=== PATIENT | female | born 1940 | race Caucasian/White ===

== ENCOUNTER 2017-09-23 13:10 | Inpatient (IN) | payer MEDICARE ==
[2017-09-23] VITALS (8 sets, daily range): BP systolic 119–164; BP diastolic 60–72
[~2017-09-23] VITALS: Ht 165.1 cm; Wt 82.0 kg
[~2017-09-23 13:10] MED LIST: ESCI20TA PO; SYN0.1T PO
[2017-09-23 13:49] LABS: BASOPHILS % (AUTO) 0.1 % (0-1); EOSINOPHILS % (AUTO) 0 % (0-6); HEMATOCRIT 38.7 % (35.0-45.0); HEMOGLOBIN 13.4 g/dl (12.0-16.0); LYMPHOCYTES # (AUTO) 0.8 X10'3 (1.1-4.8); LYMPHOCYTES % (AUTO) 7.5 % (21-51); MEAN CORPUSCULAR HEMOGLOBIN 32.3 PG (27.0-31.0); MEAN CORPUSCULAR HGB CONC 34.7 % (33.0-36.5); MONOCYTES # (AUTO) 0.5 X10'3 (0-0.9); MONOCYTES % (AUTO) 5.2 % (2-12); NEUTROPHILS # (AUTO) 9.1 X10'3 (1.8-7.7); NEUTROPHILS % (AUTO) 87.2 % (42-75); PLATELET COUNT 295 X10'3 (140-440); RED BLOOD COUNT 4.16 X10'6 (4.20-5.60); RED CELL DISTRIBUTION WIDTH 13.8 % (11.5-14.5); WHITE BLOOD COUNT 10.4 X10'3 (4.5-11.0)
[2017-09-23] MEDS ORDERED: atropine 0.1mg/ml 10ml syringe ONE (14:00)
[2017-09-23 14:03] LABS: PARTIAL THROMBOPLASTIN TIME 25 SECONDS (22-32)
[2017-09-23 14:04] LABS: ALANINE AMINOTRANSFERASE 27 U/L (12-78); ALBUMIN 3.3 G/DL (3.4-5.0); ALBUMIN/GLOBULIN RATIO 0.9 (1.1-1.5); ALKALINE PHOSPHATASE 94 IU/L (46-116); ANION GAP 10 (8-16); ASPARTATE AMINO TRANSFERASE 34 U/L (10-37); BILIRUBIN,TOTAL 0.4 MG/DL (0.1-1.0); BLOOD UREA NITROGEN 15 MG/DL (7-18); CALCIUM 9.6 MG/DL (8.5-10.1); CHLORIDE 101 MMOL/L (99-107); CREATININE 0.88 MG/DL (0.40-0.90); GLUCOSE 154 MG/DL (70-104); SODIUM 136 MMOL/L (135-145); TOTAL CARBON DIOXIDE 25.3 MMOL/L (24-32); TOTAL PROTEIN 7.1 G/DL (6.4-8.2); eGFR 62 ML/MIN
[2017-09-23 14:06] LABS: POTASSIUM 3.8 MMOL/L (3.5-5.1)
[2017-09-23] MEDS ORDERED: heparin 10,000 units/1 ML INJ IV ONE ×2 (14:25→14:40)
[2017-09-23] MEDS ORDERED: heparin 10,000 units/1 ML INJ IV PRN ×2 (14:25→14:40)
[2017-09-23] MEDS ORDERED: morphine 4 MG/ML inj SYRINge IV PRN (14:40)
[2017-09-23] MEDS ORDERED: magnesium hydroxide 30ml (MOM) UD suspension PO PRN (14:40)
[2017-09-23] MEDS ORDERED: mag hydrox/Alum hydrox/simeth 30ml oral suspension PO PRN (14:40)
[2017-09-23] MEDS ORDERED: nitroGLYCERIN 0.4mg SUBLingual tab SL PRN ×2 (14:40→14:50)
[2017-09-23] MEDS ORDERED: ondansetron/PF 4mg/2ml inj IV PRN (14:40)
[2017-09-23] MEDS ORDERED: acetaminophen 325mg tablet PO PRN (14:40)
[2017-09-23] MEDS ORDERED: ESCI10TA PO (15:00)
[2017-09-23] MEDS ORDERED: nitroGLYCERIN-Tridil 50MG/D5W 250 ML IV SCH (16:15)
[2017-09-23] MEDS: nitroGLYCERIN 0.4mg SUBLingual tab SL PRN ×2 (16:39→16:40)
[2017-09-23 16:41] LABS: MAGNESIUM 2.3 MG/DL (1.5-2.4); PHOSPHORUS 2.7 MG/DL (2.3-4.5)
[2017-09-23] MEDS: tirofiban 5mg in NS 100mL 100 ML IV SCH (17:08)
[2017-09-23] MEDS ORDERED: nitroGLYCERIN-Tridil 50MG/D5W 250 ML IV ONE (17:19)
[2017-09-23] MEDS ORDERED: iohexol 350 MG/ML 50ML vial IV ONE (17:19)
[2017-09-23] MEDS ORDERED: iohexol 350MG/ML 100ml bottle IV ONE (17:19)
[2017-09-23] MEDS ORDERED: heparin 1,000unit/ml 10ml vial 10 ML ONE (17:19)
[2017-09-23] MEDS ORDERED: LIDOcaine 1% 30ml preserv. free vial ONE (17:19)
[2017-09-23] MEDS ORDERED: fentaNYL/PF 50MCG/1 ML 2ML syringe ONE (17:55)
[2017-09-23] MEDS ORDERED: midazolam 2 mg/2 ml injection ONE (17:55)
[2017-09-23] MEDS ORDERED: iohexol 350 MG/1 ML 200ml bottle ONE (18:12)
[2017-09-23] MEDS ORDERED: heparin 1,000 UNITS/NS 500ml 500 ML ONE (18:31)
[2017-09-23] MEDS ORDERED: ticagrelor 90mg tablet ONE (19:12)
[2017-09-23] MEDS ORDERED: tirofiban 5mg in NS 100mL 100 ML IV ONE (19:33)
[2017-09-23] MEDS ORDERED: aspirin 81mg tablet.DR PO ONE (21:30)
[2017-09-23] MEDS: metoprolol tartrate 25mg tablet PO SCH (21:48)
[2017-09-24] VITALS (19 sets, daily range): BP systolic 53–158; BP diastolic 35–73
[2017-09-24] MEDS ORDERED: cyclobenzaprine 10mg tablet PO PRN (00:30)
[2017-09-24] MEDS ORDERED: OXAZEpam 15mg capsule PO PRN (00:30)
[2017-09-24] MEDS ORDERED: HYDROcodone/acetaminophen 10/325mg tab PO PRN ×2 (00:30)
[2017-09-24] MEDS ORDERED: acetaminophen 325mg tablet PO PRN ×2 (00:30)
[2017-09-24] MEDS ORDERED: magnesium hydroxide 30ml (MOM) UD suspension PO PRN (00:30)
[2017-09-24] MEDS ORDERED: normal saline 1000ml 1,000 ML IV ONE (00:40)
[2017-09-24 03:48] LABS: BASOPHILS % (AUTO) 0 % (0-1); EOSINOPHILS % (AUTO) 0 % (0-6); HEMATOCRIT 31.8 % (35.0-45.0); HEMOGLOBIN 10.9 g/dl (12.0-16.0); LYMPHOCYTES # (AUTO) 0.7 X10'3 (1.1-4.8); LYMPHOCYTES % (AUTO) 5.6 % (21-51); MEAN CORPUSCULAR HEMOGLOBIN 32.1 PG (27.0-31.0); MEAN CORPUSCULAR HGB CONC 34.2 % (33.0-36.5); MEAN CORPUSCULAR VOLUME 93.8 FL (78-98); MEAN PLATELET VOLUME 8.1 FL (7.4-10.4); MONOCYTES % (AUTO) 7.8 % (2-12); NEUTROPHILS # (AUTO) 11.1 X10'3 (1.8-7.7); NEUTROPHILS % (AUTO) 86.6 % (42-75); PLATELET COUNT 285 X10'3 (140-440); RED BLOOD COUNT 3.39 X10'6 (4.20-5.60); WHITE BLOOD COUNT 12.8 X10'3 (4.5-11.0)
[2017-09-24 04:19] LABS: ALBUMIN 2.6 G/DL (3.4-5.0); ANION GAP 9 (8-16); BLOOD UREA NITROGEN 17 MG/DL (7-18); BUN/CREATININE RATIO 24.6 (6.6-38.0); CALCIUM 8.8 MG/DL (8.5-10.1); CHLORIDE 108 MMOL/L (99-107); CREATININE 0.69 MG/DL (0.40-0.90); GLUCOSE 156 MG/DL (70-104); POTASSIUM 3.7 MMOL/L (3.5-5.1); SODIUM 140 MMOL/L (135-145); TOTAL CARBON DIOXIDE 22.7 MMOL/L (24-32); eGFR 83 ML/MIN
[2017-09-24] MEDS ORDERED: NORepinephrine 8mg/ 250ml NS 250 ML IV ONE (04:24)
[2017-09-24] MEDS ORDERED: NORepinephrine 8mg/ 250ml NS 250 ML IV SCH (04:50)
[2017-09-24] MEDS ORDERED: atropine 0.1mg/ml 10ml syringe IV ONE (04:50)
[2017-09-24] MEDS: tirofiban 5mg in NS 100mL 100 ML IV SCH (06:45)
[2017-09-24 07:30] LABS: CHOL/HDL RATIO 4.2 (0.00-4.99); CHOLESTEROL 185 MG/DL (0-200); HDL CHOLESTEROL 44 MG/DL (35-60); LDL CHOLESTEROL 134 MG/DL (50-100); TRIGLYCERIDES 80 MG/DL (20-135)
[2017-09-24] MEDS ORDERED: ticagrelor 90mg tablet PO SCH (08:00)
[2017-09-24] MEDS ORDERED: aspirin 81mg tablet.DR PO SCH (08:00)
[2017-09-24] MEDS ORDERED: docusate sod 100mg capsule PO SCH (08:00)
[2017-09-24] MEDS ORDERED: atorvastatin 20mg tablet PO SCH (08:00)
[2017-09-24] MEDS: metoprolol tartrate 25mg tablet PO SCH (08:42)
[2017-09-24] MEDS ORDERED: citalopram 20mg tablet PO STA (09:59)
[2017-09-24] MEDS ORDERED: levoTHYROXINE 100mcg tablet PO STA (09:59)
[2017-09-24] MEDS ORDERED: atorvastatin 10mg tablet PO STA (09:59)
[2017-09-24] MEDS ORDERED: TICA90TA PO (13:38)
[2017-09-24] MEDS ORDERED: ATOR20TA66 PO (13:38)
[2017-09-24] MEDS ORDERED: METO25TA6 PO (13:39)
[2017-09-24] MEDS ORDERED: ASPI-1071 PO (13:39)
[2017-09-25] MEDS ORDERED: levoTHYROXINE 100mcg tablet PO SCH (07:00)
[2017-09-25] MEDS ORDERED: atorvastatin 20mg tablet PO SCH (08:00)
[2017-09-25] MEDS ORDERED: citalopram 20mg tablet PO SCH (08:00)
== END 2017-09-24 17:54 | disposition home or self-care (01) | DRG 247 ==
LOC: ER 13:11 → ED HOLD 14:37 → PCU 3S 15:40 → CICU 2S 18:41
PROVIDERS: ADMIT Internal Medicine; ATTEND Internal Medicine
PROC: 4A023N7 Measurement of Cardiac Sampling and Pressure, Left Heart, Percutaneous Approach (ICD-10-PCS; principal; 2017-09-23)
PROC: 0271346 Dilation of Coronary Artery, Two Arteries, Bifurcation, with Drug-eluting Intraluminal Device, Percutaneous Approach (ICD-10-PCS; 2017-09-23)
PROC: 02703ZZ Dilation of Coronary Artery, One Artery, Percutaneous Approach (ICD-10-PCS; 2017-09-23)
PROC: B2111ZZ Fluoroscopy of Multiple Coronary Arteries using Low Osmolar Contrast (ICD-10-PCS; 2017-09-23)
PROC: B2151ZZ Fluoroscopy of Left Heart using Low Osmolar Contrast (ICD-10-PCS; 2017-09-23)
DX: I21.4 Non-ST elevation (NSTEMI) myocardial infarction (principal); E03.9 Hypothyroidism, unspecified; E78.5 Hyperlipidemia, unspecified; F32.9 Major depressive disorder, single episode, unspecified; I25.10 Atherosclerotic heart disease of native coronary artery without angina pectoris; Z90.710 Acquired absence of both cervix and uterus; Z95.5 Presence of coronary angioplasty implant and graft; Z90.49 Acquired absence of other specified parts of digestive tract; Z79.82 Long term (current) use of aspirin; Z79.899 Other long term (current) drug therapy; Z82.49 Family history of ischemic heart disease and other diseases of the circulatory system
CPT/HCPCS: 92920; 93458; 99285; C9600; 36415; 71045; 80048; 80053; 80061; 83735; 83880; 84100; 84484; 85025; 85347; 85610; 85730; 93005; 99152; 99153; A4315; A4620; A6213; A6257; A6449; C1725; C1769; C1874; J0461; J1644; J2250; J2270; J3010; J3246; J3490; J7030; Q9967

== ENCOUNTER 2017-09-27 15:22 | Observation (INO) | payer MEDICARE ==
[~2017-09-27] VITALS: Ht 165.1 cm; Wt 80.5 kg
[~2017-09-27 15:22] MED LIST changes: +ASPI-1071 PO; +ATOR20TA66 PO; +ESCI10TA PO; -ESCI20TA PO; +METO25TA6 PO; +TICA90TA PO
[2017-09-27 15:47] LABS: BASOPHILS % (AUTO) 0.3 % (0-1); EOSINOPHILS # (AUTO) 0.1 X10'3 (0-0.9); EOSINOPHILS % (AUTO) 1.1 % (0-6); HEMATOCRIT 33.4 % (35.0-45.0); HEMOGLOBIN 11.3 g/dl (12.0-16.0); LYMPHOCYTES # (AUTO) 1.1 X10'3 (1.1-4.8); LYMPHOCYTES % (AUTO) 9.3 % (21-51); MEAN CORPUSCULAR HEMOGLOBIN 32.3 PG (27.0-31.0); MEAN CORPUSCULAR VOLUME 94.9 FL (78-98); MEAN PLATELET VOLUME 7.8 FL (7.4-10.4); MONOCYTES # (AUTO) 0.8 X10'3 (0-0.9); NEUTROPHILS # (AUTO) 9.7 X10'3 (1.8-7.7); NEUTROPHILS % (AUTO) 82.3 % (42-75); PLATELET COUNT 330 X10'3 (140-440); RED BLOOD COUNT 3.51 X10'6 (4.20-5.60); RED CELL DISTRIBUTION WIDTH 13.9 % (11.5-14.5); WHITE BLOOD COUNT 11.8 X10'3 (4.5-11.0)
[2017-09-27 16:00] LABS: PARTIAL THROMBOPLASTIN TIME 23 SECONDS (22-32)
[2017-09-27 16:04] LABS: ALANINE AMINOTRANSFERASE 24 U/L (12-78); ALBUMIN 3.4 G/DL (3.4-5.0); ALBUMIN/GLOBULIN RATIO 0.9 (1.1-1.5); ALKALINE PHOSPHATASE 95 IU/L (46-116); ANION GAP 9 (8-16); ASPARTATE AMINO TRANSFERASE 20 U/L (10-37); BILIRUBIN,TOTAL 1.1 MG/DL (0.1-1.0); BLOOD UREA NITROGEN 18 MG/DL (7-18); BUN/CREATININE RATIO 17.5 (6.6-38.0); CALCIUM 9.8 MG/DL (8.5-10.1); CHLORIDE 100 MMOL/L (99-107); CREATININE 1.03 MG/DL (0.40-0.90); GLUCOSE 144 MG/DL (70-104); POTASSIUM 3.7 MMOL/L (3.5-5.1); SODIUM 136 MMOL/L (135-145); TOTAL CARBON DIOXIDE 27.1 MMOL/L (24-32); TOTAL PROTEIN 7.2 G/DL (6.4-8.2); eGFR 52 ML/MIN
[2017-09-27] MEDS ORDERED: magnesium hydroxide 30ml (MOM) UD suspension PO PRN (17:55)
[2017-09-27] MEDS ORDERED: ondansetron/PF 4mg/2ml inj IV PRN (17:55)
[2017-09-27] MEDS ORDERED: acetaminophen 325mg tablet PO PRN (17:55)
[2017-09-27] MEDS ORDERED: nitroGLYCERIN 0.4mg SUBLingual tab SL PRN (17:55)
[2017-09-27] MEDS ORDERED: mag hydrox/Alum hydrox/simeth 30ml oral suspension PO PRN (17:55)
[2017-09-27] MEDS ORDERED: morphine 4 MG/ML inj SYRINge IV PRN ×2 (17:55)
[2017-09-27] MEDS: ticagrelor 90mg tablet PO SCH (19:01)
[2017-09-27] MEDS: metoprolol tartrate 25mg tablet PO SCH (19:01)
[2017-09-27 22:00] VITALS: BP 120/48
[2017-09-28 02:00] VITALS: BP 104/46
[2017-09-28 06:48] VITALS: BP 115/42
[2017-09-28] MEDS ORDERED: citalopram 20mg tablet PO SCH (08:00)
[2017-09-28] MEDS ORDERED: atorvastatin 20mg tablet PO SCH (08:00)
[2017-09-28] MEDS ORDERED: aspirin 81mg tablet.DR PO SCH (08:00)
[2017-09-28] MEDS ORDERED: levoTHYROXINE 100mcg tablet PO SCH (08:00)
[2017-09-28] MEDS: ticagrelor 90mg tablet PO SCH (08:26)
[2017-09-28] MEDS: metoprolol tartrate 25mg tablet PO SCH (08:26)
[2017-09-28 11:00] VITALS: BP 118/67
[2017-09-28] MEDS ORDERED: NITR0.4T51 SL (12:23)
== END 2017-09-28 15:50 | disposition home or self-care (01) ==
LOC: ER 15:23 → ED HOLD 18:23 → PCU 3S 20:31
PROVIDERS: ADMIT Internal Medicine; ATTEND Internal Medicine
DX: R07.89 Other chest pain (principal); E03.9 Hypothyroidism, unspecified; E78.5 Hyperlipidemia, unspecified; I21.4 Non-ST elevation (NSTEMI) myocardial infarction; I25.10 Atherosclerotic heart disease of native coronary artery without angina pectoris; I25.2 Old myocardial infarction; Z90.710 Acquired absence of both cervix and uterus
CPT/HCPCS: 36415; 71045; 80053; 84484; 85025; 85610; 85730; 87070; 93005; 99285; G0378

== ENCOUNTER 2018-05-01 20:06 | Emergency (ER) | payer MEDICARE ==
[~2018-05-01] VITALS: Ht 165.1 cm; Wt 76.3 kg
[~2018-05-01 20:06] MED LIST changes: +NITR0.4T51 SL
[2018-05-01 20:55] LABS: BASOPHILS % (AUTO) 0.3 % (0-1); EOSINOPHILS # (AUTO) 0.1 X10'3 (0-0.9); EOSINOPHILS % (AUTO) 1.5 % (0-6); HEMATOCRIT 40.6 % (35.0-45.0); HEMOGLOBIN 13.6 g/dl (12.0-16.0); LYMPHOCYTES # (AUTO) 1.8 X10'3 (1.1-4.8); LYMPHOCYTES % (AUTO) 19.1 % (21-51); MEAN CORPUSCULAR HEMOGLOBIN 32.1 PG (27.0-31.0); MEAN CORPUSCULAR HGB CONC 33.6 % (33.0-36.5); MEAN CORPUSCULAR VOLUME 95.5 FL (78-98); MEAN PLATELET VOLUME 7.2 FL (7.4-10.4); MONOCYTES # (AUTO) 0.9 X10'3 (0-0.9); MONOCYTES % (AUTO) 9.2 % (2-12); NEUTROPHILS # (AUTO) 6.7 X10'3 (1.8-7.7); NEUTROPHILS % (AUTO) 69.9 % (42-75); PLATELET COUNT 306 X10'3 (140-440); RED BLOOD COUNT 4.25 X10'6 (4.20-5.60); RED CELL DISTRIBUTION WIDTH 15.8 % (11.5-14.5); WHITE BLOOD COUNT 9.5 X10'3 (4.5-11.0)
[2018-05-01 21:10] LABS: ALANINE AMINOTRANSFERASE 63 U/L (12-78); ALBUMIN/GLOBULIN RATIO 0.8 (1.1-1.5); ALKALINE PHOSPHATASE 91 IU/L (46-116); ANION GAP 8 (8-16); ASPARTATE AMINO TRANSFERASE 37 U/L (10-37); BILIRUBIN,TOTAL 0.3 MG/DL (0.1-1.0); BLOOD UREA NITROGEN 14 MG/DL (7-18); BUN/CREATININE RATIO 15.9 (6.6-38.0); CALCIUM 8.7 MG/DL (8.5-10.1); CHLORIDE 102 MMOL/L (99-107); CREATININE 0.88 MG/DL (0.40-0.90); GLUCOSE 151 MG/DL (70-104); POTASSIUM 3.8 MMOL/L (3.5-5.1); PROTHROMBIN TIME 9.8 SECONDS (9.0-12.0); SODIUM 138 MMOL/L (135-145); TOTAL CARBON DIOXIDE 27.7 MMOL/L (24-32); TOTAL PROTEIN 6.7 G/DL (6.4-8.2); eGFR 62 ML/MIN
[2018-05-01 21:11] LABS: PARTIAL THROMBOPLASTIN TIME 25 SECONDS (22-32)
[2018-05-01] MEDS ORDERED: mag hydrox/Alum hydrox/simeth 30ml oral suspension PO ONE (21:40)
[2018-05-01] MEDS ORDERED: LIDOcaine Viscous 15ml cup PO ONE (21:40)
[2018-05-01 23:52] VITALS: BP 132/47
== END 2018-05-02 00:11 | disposition home or self-care (01) ==
LOC: ER 20:07
DX: R07.89 Other chest pain (principal); I25.10 Atherosclerotic heart disease of native coronary artery without angina pectoris; E78.00 Pure hypercholesterolemia, unspecified; I25.2 Old myocardial infarction; Z86.711 Personal history of pulmonary embolism; Z90.49 Acquired absence of other specified parts of digestive tract; Z79.82 Long term (current) use of aspirin; Z79.899 Other long term (current) drug therapy; Z79.01 Long term (current) use of anticoagulants
CPT/HCPCS: 36415; 71045; 80053; 83880; 84484; 85025; 85610; 85730; 93005; 99284

== ENCOUNTER 2018-06-02 22:55 | Inpatient (IN) | payer MEDICARE | END 2018-06-05 13:10 | disposition home or self-care (01) | LOC: ED HOLD 06-03 00:41 → ER 22:55 → PCU 3S 06-03 07:09 | DX: I25.110 Atherosclerotic heart disease of native coronary artery with unstable angina pectoris (principal); I10 Essential (primary) hypertension ==

== ENCOUNTER 2018-08-06 09:54 | Observation (INO) | payer MEDICARE ==
[~2018-08-06] VITALS: Ht 165.1 cm; Wt 81.0 kg
[2018-08-06] MEDS ORDERED: ondansetron/PF 4mg/2ml inj IV ONE (10:30)
[2018-08-06] MEDS ORDERED: aspirin 81mg tab.chew PO ONE (10:30)
[2018-08-06] MEDS ORDERED: morphine 4 MG/ML inj SYRINge IV ONE (10:30)
[2018-08-06] MEDS ORDERED: morphine 4 MG/ML inj SYRINge ONE (10:51)
[2018-08-06 10:53] LABS: BASOPHILS % (AUTO) 0.4 % (0-1); EOSINOPHILS % (AUTO) 0.5 % (0-6); HEMATOCRIT 41.2 % (35.0-45.0); HEMOGLOBIN 13.9 g/dl (12.0-16.0); LYMPHOCYTES # (AUTO) 1.2 X10'3 (1.1-4.8); LYMPHOCYTES % (AUTO) 14.5 % (21-51); MEAN CORPUSCULAR HEMOGLOBIN 32.5 PG (27.0-31.0); MEAN CORPUSCULAR HGB CONC 33.7 g/dL (33.0-36.5); MEAN CORPUSCULAR VOLUME 96.6 FL (78-98); MEAN PLATELET VOLUME 7.7 FL (7.4-10.4); MONOCYTES % (AUTO) 12.1 % (2-12); NEUTROPHILS # (AUTO) 6.1 X10'3 (1.8-7.7); NEUTROPHILS % (AUTO) 72.5 % (42-75); PLATELET COUNT 265 X10'3 (140-440); RED BLOOD COUNT 4.26 X10'6 (4.20-5.60); RED CELL DISTRIBUTION WIDTH 14.9 % (11.5-14.5); WHITE BLOOD COUNT 8.3 X10'3 (4.5-11.0)
[2018-08-06 11:06] LABS: ALANINE AMINOTRANSFERASE 43 U/L (12-78); ALBUMIN 3.1 G/DL (3.4-5.0); ALBUMIN/GLOBULIN RATIO 0.9 (1.1-1.5); ALKALINE PHOSPHATASE 90 IU/L (46-116); ANION GAP 6 (8-16); ASPARTATE AMINO TRANSFERASE 26 U/L (10-37); BILIRUBIN,TOTAL 0.8 MG/DL (0.1-1.0); BLOOD UREA NITROGEN 13 MG/DL (7-18); BUN/CREATININE RATIO 15.5 (6.6-38.0); CALCIUM 9.2 MG/DL (8.5-10.1); CHLORIDE 101 MMOL/L (99-107); CREATININE 0.84 MG/DL (0.40-0.90); GLUCOSE 96 MG/DL (70-104); POTASSIUM 3.9 MMOL/L (3.5-5.1); SODIUM 137 MMOL/L (135-145); TOTAL CARBON DIOXIDE 29.6 MMOL/L (24-32); TOTAL PROTEIN 6.4 G/DL (6.4-8.2); eGFR 66 ML/MIN
[2018-08-06] MEDS ORDERED: LIDOcaine Viscous 15ml cup PO ONE (11:10)
[2018-08-06] MEDS ORDERED: mag hydrox/Alum hydrox/simeth 30ml oral suspension PO ONE (11:10)
[2018-08-06] MEDS ORDERED: famotidine/PF 10 mg/ml inj IV ONE (11:10)
[2018-08-06] MEDS ORDERED: iohexol 350MG/ML 100ml bottle IV ONE (11:27)
[2018-08-06 11:32] LABS: PARTIAL THROMBOPLASTIN TIME 24 SECONDS (22-32)
[2018-08-06] MEDS ORDERED: magnesium Cl slow-release 64mg tablet PO PRN (12:40)
[2018-08-06] MEDS ORDERED: potassium Cl 20 mEq SR tablet PO PRN ×2 (12:40)
[2018-08-06] MEDS ORDERED: potassium Cl 40MEQ/NS 500ml 500 ML IV PRN ×2 (12:40)
[2018-08-06] MEDS ORDERED: magnesium 2GM in 50ml NS 50 ML IV PRN (12:40)
[2018-08-06] MEDS ORDERED: mag hydrox/Alum hydrox/simeth 30ml oral suspension PO PRN (12:40)
[2018-08-06] MEDS ORDERED: acetaminophen 325mg tablet PO PRN ×2 (12:40)
[2018-08-06] MEDS ORDERED: magnesium hydroxide 30ml (MOM) UD suspension PO PRN (12:40)
[2018-08-06] MEDS ORDERED: ondansetron/PF 4mg/2ml inj IV PRN (12:40)
[2018-08-06] MEDS ORDERED: magnesium 4gm in 100ml NS 100 ML IV PRN (12:40)
[2018-08-06] MEDS ORDERED: HYDR25TA4 PO (13:27)
[2018-08-06] MEDS ORDERED: ESTR42.510 VG (13:27)
[2018-08-06] MEDS ORDERED: ASPI-611 PO (13:28)
[2018-08-06] MEDS ORDERED: ATOR-2 PO (13:28)
[2018-08-06] MEDS ORDERED: TICA90TA2 PO (13:30)
[2018-08-06] MEDS ORDERED: METO25TA6 PO (13:30)
[2018-08-06] MEDS ORDERED: NITR0.4T48 SL (13:32)
[2018-08-06] MEDS ORDERED: CHOL10002 PO (13:38)
[2018-08-06] MEDS ORDERED: UBID1CAP54 PO (13:38)
--- NOTE | 2018-08-06 16:05 | NUR ---
Report attempted, RN currently unable to take report.
[2018-08-06] MEDS ORDERED: HYDROchlorothiazide 25mg tablet PO PRN (17:00)
[2018-08-06] MEDS ORDERED: nitroGLYCERIN 0.4mg/hour patch TD SCH ×2 (17:50→18:00)
[2018-08-06 18:00] VITALS: BP 154/62
--- NOTE | 2018-08-06 18:05 | NUR ---
Received report from Fiordaliza RN. Patient arrived to 3011 via ED gurney. Patient ambulated to bed. Patient oriented to room and to call light. Patient in no acute distress. VS: T: 98.5, HR 58, RR: 20: O2: 98% room air, BP 154/62. Pain 0/10. Will continue to monitor.
--- NOTE | 2018-08-06 18:48 | NUR ---
Unable to perform 2 RN skin check during day shift. Patient arrived to PCU at 1805.
[2018-08-06] MEDS: ticagrelor 90mg tablet PO SCH (19:56)
[2018-08-06] MEDS: metoprolol tartrate 25mg tablet PO SCH (19:57)
[2018-08-06 20:00] VITALS: BP 101/52
[2018-08-07 02:00] VITALS: BP 132/59
[2018-08-07 06:05] LABS: BASOPHILS % (AUTO) 0.4 % (0-1); EOSINOPHILS # (AUTO) 0.1 X10'3 (0-0.9); EOSINOPHILS % (AUTO) 0.9 % (0-6); HEMATOCRIT 41.4 % (35.0-45.0); HEMOGLOBIN 13.8 g/dl (12.0-16.0); LYMPHOCYTES # (AUTO) 1.6 X10'3 (1.1-4.8); LYMPHOCYTES % (AUTO) 20.8 % (21-51); MEAN CORPUSCULAR HEMOGLOBIN 32.8 PG (27.0-31.0); MEAN CORPUSCULAR HGB CONC 33.4 g/dL (33.0-36.5); MEAN CORPUSCULAR VOLUME 98.3 FL (78-98); MEAN PLATELET VOLUME 7.9 FL (7.4-10.4); MONOCYTES # (AUTO) 0.9 X10'3 (0-0.9); MONOCYTES % (AUTO) 11.3 % (2-12); NEUTROPHILS # (AUTO) 5.2 X10'3 (1.8-7.7); NEUTROPHILS % (AUTO) 66.6 % (42-75); PLATELET COUNT 245 X10'3 (140-440); RED BLOOD COUNT 4.21 X10'6 (4.20-5.60); WHITE BLOOD COUNT 7.8 X10'3 (4.5-11.0)
--- NOTE | 2018-08-07 06:10 | NUR ---
Problems reprioritized. Patient report given, questions answered & plan of care reviewed with .
[2018-08-07 06:33] LABS: ALBUMIN 3.1 G/DL (3.4-5.0); ANION GAP 3 (8-16); BLOOD UREA NITROGEN 16 MG/DL (7-18); BUN/CREATININE RATIO 18.8 (6.6-38.0); CHLORIDE 106 MMOL/L (99-107); CREATININE 0.85 MG/DL (0.40-0.90); GLUCOSE 98 MG/DL (70-104); POTASSIUM 4.2 MMOL/L (3.5-5.1); SODIUM 140 MMOL/L (135-145); TOTAL CARBON DIOXIDE 30.7 MMOL/L (24-32); eGFR 65 ML/MIN
--- NOTE | 2018-08-07 06:38 | NUR ---
Patient in room PCU 3011. I have received report from Jessenia ANDREA and had the opportunity to ask questions and assume patient care. Pt resting comfortably at this time, will continue to monitor
[2018-08-07 07:00] VITALS: BP 134/58
[2018-08-07] MEDS ORDERED: pantoprazole 40mg Tablet.DR PO SCH (07:30)
[2018-08-07] MEDS ORDERED: levoTHYROXINE 100mcg tablet PO SCH (08:00)
[2018-08-07] MEDS ORDERED: UBIDECARENONE PO SCH (08:00)
[2018-08-07] MEDS ORDERED: enoxaparin 40mg/0.4ml syringe SQ SCH (08:00)
[2018-08-07] MEDS ORDERED: citalopram 20mg tablet PO SCH (08:00)
[2018-08-07] MEDS ORDERED: vitamin D (cholecalciferol) 1,000 unit tablet PO SCH (08:00)
[2018-08-07] MEDS ORDERED: VIT E ACETATE PO SCH (08:00)
[2018-08-07] MEDS ORDERED: atorvastatin 20mg tablet PO SCH (08:00)
[2018-08-07] MEDS ORDERED: K and/or MAG REPLACEMENT MC SCH (08:00)
[2018-08-07] MEDS ORDERED: aspirin 81mg tab.chew PO SCH (08:30)
--- NOTE | 2018-08-07 08:40 | NUR ---
Ambulated patient 600 ft with no assistive devices. Patient tolerated well and when done stated that she had a slight heaviness on the right side of her chest. O2sat was at 88/89. Patient recovered easily to 98% on room air. Spoke with Dafne Dominguez NP about results of ambulation. Per Dafne Dominguez FITNESS/WELLNESS DIRECTOR can feed patient a light breakfast and okay to give lovenox.
[2018-08-07] MEDS: ticagrelor 90mg tablet PO SCH (08:53)
[2018-08-07] MEDS: metoprolol tartrate 25mg tablet PO SCH (08:54)
[2018-08-07] MEDS ORDERED: ISOS30TA6 PO (10:34)
[2018-08-07] MEDS ORDERED: PANT-47 PO (10:34)
[2018-08-07 11:00] VITALS: BP 149/77
--- NOTE | 2018-08-07 13:16 | NUR ---
Patient was discharged at 1255 home. Discharge instruction and patient education were reviewed before signing and being sent home with patient. PIV was removed with cannula intact and telemetry monitoring was removed. All patient belongings were sent home with patient and Rx's were delivered by [facility]. Patient was wheeled down by staff and left via private vehicle with .
[2018-08-11] MEDS ORDERED: ESTRADIOL VG SCH (17:15)
== END 2018-08-07 11:55 | disposition home or self-care (01) ==
LOC: ER 09:55 → PCU 3S 19:00 → CMPBEDREQ 19:49
PROVIDERS: ADMIT Hospitalist; ATTEND Hospitalist
DX: I25.119 Atherosclerotic heart disease of native coronary artery with unspecified angina pectoris (principal); E78.00 Pure hypercholesterolemia, unspecified; F41.9 Anxiety disorder, unspecified; F32.9 Major depressive disorder, single episode, unspecified; E78.5 Hyperlipidemia, unspecified; I25.2 Old myocardial infarction; E03.9 Hypothyroidism, unspecified; Z86.711 Personal history of pulmonary embolism; Z95.5 Presence of coronary angioplasty implant and graft; Z90.49 Acquired absence of other specified parts of digestive tract; Z79.82 Long term (current) use of aspirin
CPT/HCPCS: 36415; 71045; 80048; 80053; 83735; 84439; 84443; 84484; 85025; 85610; 85730; 87070; 93005; 96372; 96374; 99284; G0378; J2270; J2405; J3490; Q9967; J1650

== ENCOUNTER 2018-08-19 18:49 | Emergency (ER) | payer MEDICARE ==
[~2018-08-19] VITALS: Ht 165.1 cm; Wt 80.9 kg
[~2018-08-19 18:49] MED LIST changes: -ASPI-1071 PO; +ASPI-611 PO; +ATOR-2 PO; -ATOR20TA66 PO; +CHOL10002 PO; +ESTR42.510 VG; +HYDR25TA4 PO; +ISOS30TA6 PO; +NITR0.4T48 SL; -NITR0.4T51 SL; +PANT-47 PO; -TICA90TA PO; +TICA90TA2 PO; +UBID1CAP54 PO
[2018-08-19 19:07] VITALS: BP 133/58
--- NOTE | 2018-08-19 19:40 | NUR ---
PT HAS HX OF DVT, HAD A LUMP DEVELOP SUDDENLY TO HER RIGHT POSTERIOR CALF APPROX 2 HOURS AGO, IS AFRAID SHE HAS ANOTHER DVT. PAIN IS WITH AMBULATION, NEGATIVE DRISS'S. BRUISING TO LEG BELOW AREA OF CONCERN, PT TAKES BLOOD THINNER, [place]. DENIES ANY INJURY TO SITE THAT SHE IS AWARE OF
== END 2018-08-19 21:16 | disposition home or self-care (01) ==
LOC: ER 18:50
DX: S80.12XA Contusion of left lower leg, initial encounter (principal); I25.10 Atherosclerotic heart disease of native coronary artery without angina pectoris; E78.00 Pure hypercholesterolemia, unspecified; I25.2 Old myocardial infarction; Z90.49 Acquired absence of other specified parts of digestive tract; Z95.1 Presence of aortocoronary bypass graft; Z79.82 Long term (current) use of aspirin; X58.XXXA Exposure to other specified factors, initial encounter; Y93.89 Activity, other specified; Y92.89 Other specified places as the place of occurrence of the external cause; Y99.8 Other external cause status
CPT/HCPCS: 99281

== ENCOUNTER 2018-11-01 07:47 | Emergency (ER) | payer MEDICARE ==
[~2018-11-01] VITALS: Ht 165.1 cm; Wt 81.8 kg
[~2018-11-01 07:47] MED LIST changes: -ISOS30TA6 PO
[2018-11-01 08:24] LABS: BASOPHILS % (AUTO) 0.4 % (0-1); EOSINOPHILS % (AUTO) 0.6 % (0-6); HEMATOCRIT 42.5 % (35.0-45.0); HEMOGLOBIN 14.5 g/dl (12.0-16.0); LYMPHOCYTES # (AUTO) 1.1 X10'3 (1.1-4.8); LYMPHOCYTES % (AUTO) 19.4 % (21-51); MEAN CORPUSCULAR HEMOGLOBIN 32.8 PG (27.0-31.0); MEAN CORPUSCULAR HGB CONC 34.1 g/dL (33.0-36.5); MEAN CORPUSCULAR VOLUME 96.2 FL (78-98); MEAN PLATELET VOLUME 7.3 FL (7.4-10.4); MONOCYTES # (AUTO) 0.8 X10'3 (0-0.9); MONOCYTES % (AUTO) 15.2 % (2-12); NEUTROPHILS # (AUTO) 3.6 X10'3 (1.8-7.7); NEUTROPHILS % (AUTO) 64.4 % (42-75); PLATELET COUNT 309 X10'3 (140-440); RED BLOOD COUNT 4.41 X10'6 (4.20-5.60); RED CELL DISTRIBUTION WIDTH 15.2 % (11.5-14.5); WHITE BLOOD COUNT 5.6 X10'3 (4.5-11.0)
[2018-11-01] MEDS ORDERED: nitroGLYCERIN 0.4mg/hour patch TD ONE (08:25)
[2018-11-01] MEDS ORDERED: pantoprazole 40 MG vial IV ONE (08:25)
[2018-11-01] MEDS ORDERED: ondansetron/PF 4mg/2ml inj IV ONE (08:25)
[2018-11-01] MEDS ORDERED: ESOMEPRAZOLE 40 MG VIAL IV ONE (08:35)
[2018-11-01 08:39] LABS: ALANINE AMINOTRANSFERASE 56 U/L (12-78); ALBUMIN 3.2 G/DL (3.4-5.0); ALBUMIN/GLOBULIN RATIO 0.8 (1.1-1.5); ALKALINE PHOSPHATASE 113 IU/L (46-116); ANION GAP 10 (8-16); ASPARTATE AMINO TRANSFERASE 39 U/L (10-37); BILIRUBIN,TOTAL 0.7 MG/DL (0.1-1.0); BLOOD UREA NITROGEN 11 MG/DL (7-18); BUN/CREATININE RATIO 11.8 (6.6-38.0); CALCIUM 9.7 MG/DL (8.5-10.1); CHLORIDE 96 MMOL/L (99-107); CREATININE 0.93 MG/DL (0.40-0.90); GLUCOSE 127 MG/DL (70-104); POTASSIUM 3.5 MMOL/L (3.5-5.1); SODIUM 135 MMOL/L (135-145); TOTAL CARBON DIOXIDE 29.1 MMOL/L (24-32); TOTAL PROTEIN 7.1 G/DL (6.4-8.2); eGFR 58 ML/MIN
[2018-11-01] MEDS: morphine 2 MG/ML inj. syringe IV PRN ×2 (08:39→09:53)
[2018-11-01 08:45] LABS: PARTIAL THROMBOPLASTIN TIME 26 SECONDS (22-32)
[2018-11-01 09:37] LABS: ANISOCYTOSIS 1+; PLATELET ESTIMATE NORMAL; TOTAL CELLS COUNTED 100
--- NOTE | 2018-11-01 09:43 | NUR ---
pt stated heaviness back in chest 10/17 but refuses additional morphine. will continue to monitor.
--- NOTE | 2018-11-01 09:50 | NUR ---
Pt called me back to room stated she wants the morphine now.
[2018-11-01] MEDS ORDERED: PANT-47 PO (12:14)
[2018-11-01] MEDS ORDERED: ISOS30TA6 PO (12:14)
[2018-11-01 12:21] VITALS: BP 121/55
== END 2018-11-01 12:30 | disposition home or self-care (01) ==
LOC: ER 07:47
DX: R07.89 Other chest pain (principal); I25.10 Atherosclerotic heart disease of native coronary artery without angina pectoris; E78.00 Pure hypercholesterolemia, unspecified; I25.2 Old myocardial infarction; Z86.711 Personal history of pulmonary embolism; Z98.61 Coronary angioplasty status; Z90.49 Acquired absence of other specified parts of digestive tract; Z95.9 Presence of cardiac and vascular implant and graft, unspecified; Z79.82 Long term (current) use of aspirin; Z79.899 Other long term (current) drug therapy
CPT/HCPCS: 36415; 71045; 80053; 84484; 85025; 85610; 85730; 93005; 96374; 96375; 96376; 99284; J2270; J2405

== ENCOUNTER 2019-02-01 11:49 | Day surgery (SDC) | payer MEDICARE ==
[2019-01-31 13:12] LABS: BASOPHILS % (AUTO) 0.6 % (0-1); EOSINOPHILS # (AUTO) 0.1 X10'3 (0-0.9); HEMATOCRIT 39.7 % (35.0-45.0); HEMOGLOBIN 13.5 g/dl (12.0-16.0); LYMPHOCYTES # (AUTO) 1.2 X10'3 (1.1-4.8); LYMPHOCYTES % (AUTO) 19.1 % (21-51); MEAN CORPUSCULAR HEMOGLOBIN 32.1 PG (27.0-31.0); MEAN CORPUSCULAR VOLUME 94.3 FL (78-98); MEAN PLATELET VOLUME 7.4 FL (7.4-10.4); MONOCYTES # (AUTO) 0.9 X10'3 (0-0.9); MONOCYTES % (AUTO) 14.5 % (2-12); NEUTROPHILS # (AUTO) 4.2 X10'3 (1.8-7.7); NEUTROPHILS % (AUTO) 64.8 % (42-75); PLATELET COUNT 348 X10'3 (140-440); RED BLOOD COUNT 4.21 X10'6 (4.20-5.60); RED CELL DISTRIBUTION WIDTH 14.6 % (11.5-14.5); WHITE BLOOD COUNT 6.5 X10'3 (4.5-11.0)
[2019-01-31 13:21] LABS: ANION GAP 7 (8-16); BLOOD UREA NITROGEN 11 MG/DL (7-18); BUN/CREATININE RATIO 10.9 (6.6-38.0); CALCIUM 9.4 MG/DL (8.5-10.1); CHLORIDE 98 MMOL/L (99-107); CREATININE 1.01 MG/DL (0.40-0.90); GLUCOSE 122 MG/DL (70-104); POTASSIUM 3.3 MMOL/L (3.5-5.1); SODIUM 136 MMOL/L (135-145); TOTAL CARBON DIOXIDE 30.9 MMOL/L (24-32); eGFR 53 ML/MIN
[2019-01-31 13:25] LABS: PARTIAL THROMBOPLASTIN TIME 25 SECONDS (22-32)
[2019-02-01] VITALS (11 sets, daily range): BP systolic 113–128; BP diastolic 52–77
[~2019-02-01] VITALS: Ht 165.1 cm; Wt 80.7 kg
[2019-02-01] MEDS ORDERED: LORazepam 0.5 MG tablet PO PRN (12:10)
[2019-02-01] MEDS ORDERED: diphenhydrAMINE 25mg capsule PO PRN (12:10)
[2019-02-01] MEDS ORDERED: normal saline 1,000 ML IV SCH (12:10)
[2019-02-01] MEDS ORDERED: ATOR40TA PO (12:55)
[2019-02-01] MEDS ORDERED: ISOS30TA6 PO (12:56)
[2019-02-01] MEDS ORDERED: LIDOcaine/PRILOcaine 5gm cream TP ONE (14:35)
[2019-02-01] MEDS ORDERED: iohexol 350MG/ML 100ml bottle IV ONE (14:51)
[2019-02-01] MEDS ORDERED: midazolam 2 mg/2 ml injection ONE (14:51)
[2019-02-01] MEDS ORDERED: iohexol 350 MG/ML 50ML vial IV ONE (14:51)
[2019-02-01] MEDS ORDERED: nitroGLYCERIN-Tridil 50MG/D5W 250 ML IV ONE (14:51)
[2019-02-01] MEDS ORDERED: LIDOcaine 1% (10mg/ml)w/preservative injection 20ml MDV ONE (14:51)
[2019-02-01] MEDS ORDERED: fentaNYL/PF 50MCG/1 ML 2ML syringe ONE (14:51)
[2019-02-01] MEDS ORDERED: heparin 1,000unit/ml 10ml vial 10 ML ONE (14:51)
[2019-02-01] MEDS ORDERED: verapamil 2.5 mg/ml inj IV ONE (15:04)
[2019-02-01] MEDS ORDERED: FLU VACC QS 2019-20 (6 MOS UP) 60 MCG/0.5 ML VIAL IMVAC ONE (18:30)
== END 2019-02-01 20:00 | disposition home or self-care (01) ==
LOC: SSTAY O 11:49
PROVIDERS: ATTEND Internal Medicine Cardiovascular Disease
DX: R94.39 Abnormal result of other cardiovascular function study (principal); R06.02 Shortness of breath; I25.10 Atherosclerotic heart disease of native coronary artery without angina pectoris; I10 Essential (primary) hypertension; E78.5 Hyperlipidemia, unspecified; Z23 Encounter for immunization; E03.9 Hypothyroidism, unspecified; F32.9 Major depressive disorder, single episode, unspecified; Z95.5 Presence of coronary angioplasty implant and graft; Z79.899 Other long term (current) drug therapy; Z79.82 Long term (current) use of aspirin; Z90.710 Acquired absence of both cervix and uterus; Z90.49 Acquired absence of other specified parts of digestive tract; Z88.5 Allergy status to narcotic agent
CPT/HCPCS: 36415; 80048; 85025; 85610; 85730; 93005; 93458; 99152; 99153; C1769; C1894; G0008; J1644; J2001; J2250; J3010; J7030; Q0163; Q2037; Q9967; A4620; A6258; J3490

== ENCOUNTER 2019-08-23 15:01 | Emergency (ER) | payer MEDICARE ==
[~2019-08-23] VITALS: Ht 165.1 cm; Wt 81.8 kg
[~2019-08-23 15:01] MED LIST changes: -ATOR-2 PO; +ATOR40TA PO; -ESTR42.510 VG; -HYDR25TA4 PO; +ISOS30TA6 PO
[2019-08-23 15:29] LABS: BASOPHILS % (AUTO) 0.5 % (0-1); EOSINOPHILS # (AUTO) 0.1 X10'3 (0-0.9); EOSINOPHILS % (AUTO) 0.9 % (0-6); HEMATOCRIT 39.7 % (35.0-45.0); HEMOGLOBIN 13.2 g/dl (12.0-16.0); LYMPHOCYTES # (AUTO) 1.8 X10'3 (1.1-4.8); LYMPHOCYTES % (AUTO) 29.1 % (21-51); MEAN CORPUSCULAR HEMOGLOBIN 32.1 PG (27.0-31.0); MEAN CORPUSCULAR HGB CONC 33.2 g/dL (33.0-36.5); MEAN CORPUSCULAR VOLUME 96.7 FL (78-98); MEAN PLATELET VOLUME 7.4 FL (7.4-10.4); MONOCYTES # (AUTO) 0.9 X10'3 (0-0.9); MONOCYTES % (AUTO) 14.3 % (2-12); NEUTROPHILS # (AUTO) 3.3 X10'3 (1.8-7.7); NEUTROPHILS % (AUTO) 55.2 % (42-75); PLATELET COUNT 289 X10'3 (140-440); RED CELL DISTRIBUTION WIDTH 15.8 % (11.5-14.5); WHITE BLOOD COUNT 6.1 X10'3 (4.5-11.0)
[2019-08-23 15:36] LABS: PARTIAL THROMBOPLASTIN TIME 27 SECONDS (22-32)
[2019-08-23 15:41] LABS: ALANINE AMINOTRANSFERASE 135 U/L (12-78); ALBUMIN 2.8 G/DL (3.4-5.0); ALBUMIN/GLOBULIN RATIO 0.7 (1.1-1.5); ALKALINE PHOSPHATASE 131 IU/L (46-116); ANION GAP 2 (8-16); ASPARTATE AMINO TRANSFERASE 124 U/L (10-37); BILIRUBIN,TOTAL 0.5 MG/DL (0.1-1.0); BLOOD UREA NITROGEN 17 MG/DL (7-18); BUN/CREATININE RATIO 13.6 (6.6-38.0); CALCIUM 9.4 MG/DL (8.5-10.1); CHLORIDE 101 MMOL/L (99-107); CREATININE 1.25 MG/DL (0.40-0.90); GLUCOSE 106 MG/DL (70-104); POTASSIUM 3.9 MMOL/L (3.5-5.1); SODIUM 135 MMOL/L (135-145); TOTAL CARBON DIOXIDE 32.2 MMOL/L (24-32); TOTAL PROTEIN 6.6 G/DL (6.4-8.2); eGFR 41 ML/MIN
[2019-08-23 16:42] VITALS: BP 123/56
== END 2019-08-23 16:44 | disposition home or self-care (01) ==
LOC: ER 15:02
DX: R07.89 Other chest pain (principal); M54.6 Pain in thoracic spine; I25.10 Atherosclerotic heart disease of native coronary artery without angina pectoris; E78.00 Pure hypercholesterolemia, unspecified; I25.2 Old myocardial infarction; Z86.711 Personal history of pulmonary embolism; Z98.61 Coronary angioplasty status; Z90.49 Acquired absence of other specified parts of digestive tract; Z98.890 Other specified postprocedural states; Z79.82 Long term (current) use of aspirin; Z79.899 Other long term (current) drug therapy
CPT/HCPCS: 36415; 71045; 80053; 84484; 85025; 85610; 85730; 93005; 99285

== ENCOUNTER 2020-06-12 08:33 | Observation (INO) | payer MEDICARE ==
[~2020-06-12] VITALS: Ht 165.1 cm; Wt 81.8 kg
[~2020-06-12 08:33] MED LIST changes: -ISOS30TA6 PO; +ISOS30TA84 PO
[2020-06-12] MEDS ORDERED: ondansetron/PF 4mg/2ml inj IV ONE (08:45)
[2020-06-12] MEDS ORDERED: fentaNYL/PF 50MCG/1 ML 2ML syringe IV ONE ×2 (08:45→10:05)
[2020-06-12 09:03] LABS: BASOPHILS % (AUTO) 0.6 % (0-1); EOSINOPHILS # (AUTO) 0.1 X10'3 (0-0.9); EOSINOPHILS % (AUTO) 1.5 % (0-6); HEMATOCRIT 43.6 % (35.0-45.0); HEMOGLOBIN 14.7 g/dl (12.0-16.0); LYMPHOCYTES % (AUTO) 28.8 % (21-51); MEAN CORPUSCULAR HEMOGLOBIN 32.1 PG (27.0-31.0); MEAN CORPUSCULAR HGB CONC 33.7 g/dL (33.0-36.5); MEAN CORPUSCULAR VOLUME 95.3 FL (78-98); MEAN PLATELET VOLUME 7.3 FL (7.4-10.4); MONOCYTES # (AUTO) 0.9 X10'3 (0-0.9); MONOCYTES % (AUTO) 12.2 % (2-12); NEUTROPHILS % (AUTO) 56.9 % (42-75); PLATELET COUNT 362 X10'3 (140-440); RED BLOOD COUNT 4.57 X10'6 (4.20-5.60); RED CELL DISTRIBUTION WIDTH 14.9 % (11.5-14.5); WHITE BLOOD COUNT 7.1 X10'3 (4.5-11.0)
--- NOTE | 2020-06-12 09:15 | NUR ---
to ct w/ rn accompanyment
[2020-06-12 09:25] LABS: PARTIAL THROMBOPLASTIN TIME 25 SECONDS (22-32)
[2020-06-12 09:27] LABS: ALANINE AMINOTRANSFERASE 36 U/L (12-78); ALBUMIN 3.4 G/DL (3.4-5.0); ALBUMIN/GLOBULIN RATIO 0.8 (1.1-1.5); ALKALINE PHOSPHATASE 115 IU/L (46-116); ANION GAP 8 (8-16); ASPARTATE AMINO TRANSFERASE 36 U/L (10-37); BILIRUBIN,TOTAL 0.5 MG/DL (0.1-1.0); BLOOD UREA NITROGEN 12 MG/DL (7-18); BUN/CREATININE RATIO 12.8 (6.6-38.0); CALCIUM 10.3 MG/DL (8.5-10.1); CHLORIDE 100 MMOL/L (99-107); CREATININE 0.94 MG/DL (0.40-0.90); GLUCOSE 114 MG/DL (70-104); SODIUM 138 MMOL/L (135-145); TOTAL CARBON DIOXIDE 30.2 MMOL/L (24-32); TOTAL PROTEIN 7.7 G/DL (6.4-8.2); eGFR 57 ML/MIN
[2020-06-12 09:29] LABS: POTASSIUM 4.5 MMOL/L (3.5-5.1)
[2020-06-12] MEDS ORDERED: ketorolac tromethamine 15mg/ml inj. IV ONE (09:35)
--- NOTE | 2020-06-12 09:45 | NUR ---
Per edmd nina, verbal received to administered balance of fentanyl 25mcg from initial vial.
[2020-06-12] MEDS ORDERED: diphenhydrAMINE 50 mg/ml inj IV ONE (10:25)
[2020-06-12] MEDS ORDERED: metoclopramide 5 mg/ml inj IV ONE (10:25)
--- NOTE | 2020-06-12 10:55 | NUR ---
Stroke called off by perry wood.
[2020-06-12] MEDS ORDERED: mag hydrox/Alum hydrox/simeth 30ml oral suspension PO PRN (11:05)
[2020-06-12] MEDS ORDERED: acetaminophen 325mg tablet PO PRN (11:05)
[2020-06-12] MEDS ORDERED: magnesium hydroxide 30ml (MOM) UD suspension PO PRN (11:05)
[2020-06-12] MEDS ORDERED: ondansetron/PF 4mg/2ml inj IV PRN (11:05)
[2020-06-12] MEDS: normal saline 1000ml 1,000 ML IV SCH ×2 (11:36→21:05)
[2020-06-12 12:13] LABS: CHOL/HDL RATIO 4.3 (0.00-4.99); CHOLESTEROL 254 MG/DL (0-200); HDL CHOLESTEROL 59 MG/DL (35-60); LDL CHOLESTEROL 181 MG/DL (50-100); TRIGLYCERIDES 97 MG/DL (20-135)
--- NOTE | 2020-06-12 13:20 | NUR ---
Report received from ED RNFiona
[2020-06-12] MEDS ORDERED: DULO60CA65 PO (13:42)
[2020-06-12 13:55] VITALS: BP 156/72
[2020-06-12] MEDS ORDERED: nitroGLYCERIN 0.4mg SUBLingual tab SL PRN (14:00)
[2020-06-12] MEDS ORDERED: ketorolac tromethamine 15mg/ml inj. IV PRN (14:35)
[2020-06-12 18:00] VITALS: BP 149/68
--- NOTE | 2020-06-12 18:00 | NUR ---
Patient in room ORTHO 4020. I have received report from ZULLY Muhammad and had the opportunity to ask questions and assume patient care.
--- NOTE | 2020-06-12 18:20 | NUR ---
Problems reprioritized. Patient report given, questions answered & plan of care reviewed with ZULLY Mayberry.
[2020-06-12] MEDS: heparin, porcine 5000 units/ml vial SQ SCH (20:15)
[2020-06-12 20:52] LABS: CLARITY,URINE SLIGHTLY CLOUDY (Clear); COLOR,URINE YELLOW (Yellow); GLUCOSE, URINE NEGATIVE (Neg); KETONES,URINE NEGATIVE (Neg); LEUKOCYTE ESTERASE ,URINE SMALL (Neg); NITRITES, URINE NEGATIVE (Neg); OCCULT BLOOD,URINE NEGATIVE (Neg); PH,URINE 5.5 (4.8-8.0); PROTEIN,URINE NEGATIVE (Neg); UROBILINOGEN,URINE 0.2 E.U/dL (0.2-1.0)
[2020-06-12 21:28] LABS: UA COLLECTION TYPE CLN CATCH MIDSTREAM
[2020-06-12 21:47] LABS: MUCUS STRANDS NONE SEEN /LPF (Neg); SQUAMOUS EPITHELIAL CELL,UR MODERATE /LPF (FEW)
[2020-06-12 21:49] LABS: BACTERIA,URINE FEW /HPF (Neg); HYALINE CASTS 0-3 /LPF (NEGATIVE); RBC,URINE 0-2 /HPF (0-2)
[2020-06-12 22:00] VITALS: BP 129/63
[2020-06-13] MEDS: normal saline 1000ml 1,000 ML IV SCH (01:37)
[2020-06-13 02:00] VITALS: BP 142/64
[2020-06-13 06:00] VITALS: BP 149/62
--- NOTE | 2020-06-13 06:18 | NUR ---
Patient in room ORTHO 4020. I have received report from Shawanda ANDREA and had the opportunity to ask questions and assume patient care.
--- NOTE | 2020-06-13 06:34 | NUR ---
Problems reprioritized. Patient report given, questions answered & plan of care reviewed with ZULLY Mcgregor.
--- NOTE | 2020-06-13 06:42 | NUR ---
Patient in room ORTHO 4020. I have received report from Brett Mayberry and had the opportunity to ask questions and assume patient care.
[2020-06-13] MEDS ORDERED: aspirin 81mg tablet.DR PO SCH (08:00)
[2020-06-13] MEDS ORDERED: atorvastatin 10mg tablet PO SCH (08:00)
[2020-06-13] MEDS ORDERED: levoTHYROXINE 100mcg tablet PO SCH (08:00)
[2020-06-13] MEDS ORDERED: duloxetine 30mg CAPSULE.DR PO SCH (08:00)
[2020-06-13] MEDS ORDERED: non-formulary drug (Aspirin (Aspir 81) 1 TAB) PO SCH (08:00)
[2020-06-13] MEDS: heparin, porcine 5000 units/ml vial SQ SCH (08:02)
[2020-06-13 10:00] VITALS: BP 164/75
--- NOTE | 2020-06-13 13:15 | NUR ---
Patient discharged to home, alert and oriented x4 and in no apparent distress. Patient verbalized understanding of all discharge instructions. Discharge instructions given to patient and her . Pt packed all belongings and helped. Her hearing aids were in her ears. Patient understood discharge instructions and was given the opportunity to ask questions. She has a follow-up appt on Monday with Dr. Zimmerman and will make a 1 wk. appt with her PCP. IV catheter removed and intact. Patient sent home with hyperlipidemia medications, called into [facility] in [place]. Patient loaded into wheelchair and taken downstairs to leave with .
[2020-06-13] MEDS ORDERED: ATOR20TA66 PO (13:57)
[2020-06-13 14:00] VITALS: BP 132/63
[2020-06-13 15:00] VITALS: BP 132/63
--- NOTE | 2020-06-15 15:43 | NUR ---
CASE MANAGEMENT DISCHARGE FOLLOW UP: Spoke with pt via telephone. Reports that she is still having headaches, currently 2-3/10, states feels like constant pressure and her "head is full". She also admits to having a headache last night on the right posterior aspect that she rated a 10/10 that resolved on its own, however it made it very difficult for her to sleep. Pt denies visual/speech changes, dizziness, weakness, nausea. Upon inquiry pt states that she does not check her BP, states that her has a cuff but she is worried he'll "squeeze her arm to ." Verbalizes understanding of s/sx requiring further evaluation/emergent assistance. Verbalizes understanding of medications, states that she was not sure if she had any new Rx to brain picker, educated pt that MD ordered Lipitor for cholesterol to prevent CVA/[place]/worsening CAD. Verbalizes compliance with MD discharge instructions. Verbalizes understanding of the importance in making/keeping follow-up appointments, states sees PCP on 06/25. Pt wants to ask her PCP for toradol for pain, states that so far it has been the only thing that alleviated her headache other than time, states that morphine did not work at all. Advised that pt should try to get an earlier appt with PCP if able to do so for adequate pain control of headaches, pt states that she will do so. States no further questions/concerns at this time.
== END 2020-06-13 15:15 | disposition home or self-care (01) ==
LOC: ER 08:34 → ED HOLD 11:04 → EDBEDREQ 12:35 → ORTHO 4S 13:50
PROVIDERS: ADMIT Family Medicine; ATTEND Family Medicine
DX: G45.9 Transient cerebral ischemic attack, unspecified (principal); I25.10 Atherosclerotic heart disease of native coronary artery without angina pectoris; I10 Essential (primary) hypertension; E78.5 Hyperlipidemia, unspecified; E78.00 Pure hypercholesterolemia, unspecified; E03.9 Hypothyroidism, unspecified; I25.2 Old myocardial infarction; Z86.711 Personal history of pulmonary embolism; Z90.49 Acquired absence of other specified parts of digestive tract; Z95.5 Presence of coronary angioplasty implant and graft; Z79.899 Other long term (current) drug therapy
CPT/HCPCS: 36415; 70450; 70544; 70551; 71045; 80053; 80061; 81001; 85025; 85610; 85730; 87081; 87088; 92508; 92616; 93005; 93306; 93880; 96361; 96372; 96374; 96375; 96376; 97116; 97161; 97530; 99285; G0378; J1200; J1644; J1885; J2405; J2765; J3010; J7030

== ENCOUNTER 2020-12-29 06:12 | Day surgery (SDC) | payer MEDICARE ==
[2020-12-28 13:33] LABS: BASOPHILS % (AUTO) 0.4 % (0-1); EOSINOPHILS # (AUTO) 0.1 X10'3 (0-0.9); HEMATOCRIT 40.2 % (35.0-45.0); HEMOGLOBIN 13.5 g/dl (12.0-16.0); LYMPHOCYTES # (AUTO) 1.4 X10'3 (1.1-4.8); LYMPHOCYTES % (AUTO) 24.3 % (21-51); MEAN CORPUSCULAR HEMOGLOBIN 31.8 PG (27.0-31.0); MEAN CORPUSCULAR HGB CONC 33.6 g/dL (33.0-36.5); MEAN CORPUSCULAR VOLUME 94.8 FL (78-98); MEAN PLATELET VOLUME 7.1 FL (7.4-10.4); MONOCYTES # (AUTO) 0.7 X10'3 (0-0.9); MONOCYTES % (AUTO) 11.4 % (2-12); NEUTROPHILS # (AUTO) 3.7 X10'3 (1.8-7.7); NEUTROPHILS % (AUTO) 62.9 % (42-75); PLATELET COUNT 309 X10'3 (140-440); RED BLOOD COUNT 4.24 X10'6 (4.20-5.60); RED CELL DISTRIBUTION WIDTH 15.1 % (11.5-14.5); WHITE BLOOD COUNT 5.9 X10'3 (4.5-11.0)
[2020-12-28 13:45] LABS: PARTIAL THROMBOPLASTIN TIME 25 SECONDS (22-32)
[2020-12-28 13:46] LABS: ALBUMIN 3.2 G/DL (3.4-5.0); ANION GAP 10 (8-16); BLOOD UREA NITROGEN 16 MG/DL (7-18); BUN/CREATININE RATIO 16.8 (6.6-38.0); CALCIUM 9.3 MG/DL (8.5-10.1); CHLORIDE 100 MMOL/L (99-107); CREATININE 0.95 MG/DL (0.40-0.90); GLUCOSE 138 MG/DL (70-104); POTASSIUM 3.8 MMOL/L (3.5-5.1); SODIUM 137 MMOL/L (135-145); TOTAL CARBON DIOXIDE 26.6 MMOL/L (24-32); eGFR 57 ML/MIN
[2020-12-29] VITALS (14 sets, daily range): BP systolic 140–174; BP diastolic 53–70
[~2020-12-29] VITALS: Ht 165.1 cm; Wt 83.2 kg
[~2020-12-29 06:12] MED LIST changes: +ATOR20TA66 PO; -ATOR40TA PO; +DULO60CA65 PO; -ESCI10TA PO; -ISOS30TA84 PO; -METO25TA6 PO; -PANT-47 PO; -TICA90TA2 PO
[2020-12-29] MEDS ORDERED: diphenhydrAMINE 25mg capsule PO PRN (06:30)
[2020-12-29] MEDS ORDERED: normal saline 1,000 ML IV SCH (06:30)
[2020-12-29] MEDS ORDERED: LORazepam 0.5 MG tablet PO PRN (06:30)
[2020-12-29] MEDS ORDERED: LIDOcaine/PRILOcaine 5gm cream TP ONE (06:30)
[2020-12-29] MEDS ORDERED: METO25TA6 PO (06:39)
[2020-12-29] MEDS ORDERED: CLOP75TA34 PO (06:39)
[2020-12-29] MEDS ORDERED: PENT400T17 PO (06:39)
[2020-12-29] MEDS ORDERED: [UNRECOGNIZED DRUG - CODE] PO (06:45)
[2020-12-29] MEDS ORDERED: ATOR40TA PO (06:45)
[2020-12-29] MEDS ORDERED: microzide (06:45)
[2020-12-29] MEDS ORDERED: NALT50TA PO (06:45)
[2020-12-29] MEDS ORDERED: iohexol 350MG/ML 100ml bottle IV ONE (07:25)
[2020-12-29] MEDS ORDERED: LIDOcaine 1% (10mg/ml)w/preservative injection 20ml MDV ONE (07:25)
[2020-12-29] MEDS ORDERED: midazolam 1 mg/ML 2ml injection ONE (07:25)
[2020-12-29] MEDS ORDERED: nitroGLYCERIN-Tridil 50MG/D5W 250 ML IV ONE (07:25)
[2020-12-29] MEDS ORDERED: verapamil 2.5 mg/ml inj IV ONE (07:25)
[2020-12-29] MEDS ORDERED: heparin 1,000unit/ml 10ml vial 10 ML ONE (07:25)
[2020-12-29] MEDS ORDERED: fentaNYL/PF 50MCG/1 ML 2ML syringe ONE (07:25)
[2020-12-29] MEDS ORDERED: iohexol 350 MG/ML 50ML vial IV ONE (07:25)
== END 2020-12-29 15:00 | disposition home or self-care (01) ==
LOC: SSTAY O 06:12
PROVIDERS: ATTEND Internal Medicine Cardiovascular Disease
DX: R94.39 Abnormal result of other cardiovascular function study (principal); R06.02 Shortness of breath; T82.855A Stenosis of coronary artery stent, initial encounter; I25.10 Atherosclerotic heart disease of native coronary artery without angina pectoris; E78.5 Hyperlipidemia, unspecified; I10 Essential (primary) hypertension; E03.9 Hypothyroidism, unspecified; F32.9 Major depressive disorder, single episode, unspecified; Z79.01 Long term (current) use of anticoagulants; Z88.5 Allergy status to narcotic agent; Z79.899 Other long term (current) drug therapy; Z95.5 Presence of coronary angioplasty implant and graft; Z90.710 Acquired absence of both cervix and uterus; Z82.49 Family history of ischemic heart disease and other diseases of the circulatory system; Y83.8 Other surgical procedures as the cause of abnormal reaction of the patient, or of later complication, without mention of misadventure at the time of the procedure; Y92.89 Other specified places as the place of occurrence of the external cause
CPT/HCPCS: 36415; 76937; 80048; 85025; 85610; 85730; 93005; 93458; 99152; 99153; C1760; C1769; C1894; J1644; J2001; J2250; J3010; J7030; Q0163; Q9967; A4620; A5120; A6258; J3490

== ENCOUNTER 2021-01-07 11:41 | Emergency (ER) | payer MEDICARE ==
[~2021-01-07] VITALS: Ht 165.1 cm; Wt 83.2 kg
[~2021-01-07 11:41] MED LIST changes: -ATOR20TA66 PO; +ATOR40TA PO; +CLOP75TA34 PO; +METO25TA6 PO; +NALT50TA PO; +PENT400T17 PO; +[UNRECOGNIZED DRUG - CODE] PO; +microzide
[2021-01-07 11:50] VITALS: BP 149/61
[2021-01-07] MEDS ORDERED: morphine 4 MG/ML inj SYRINge IM ONE (11:55)
[2021-01-07] MEDS ORDERED: ondansetron 4mg rapidly disintigrating tab PO ONE (12:15)
[2021-01-07] MEDS ORDERED: LIDOcaine Viscous 15ml cup TP ONE ×2 (14:05→16:15)
[2021-01-07] MEDS ORDERED: morphine 4 MG/ML inj SYRINge IV ONE (14:40)
[2021-01-07] MEDS ORDERED: CEPH-585 PO (16:28)
[2021-01-07] MEDS ORDERED: TETanus/Pertussis (Acell)/Diphther VAC/PF (Tdap-Adult) 0.5ml syringe IMVAC ONE (16:30)
== END 2021-01-07 17:41 | disposition home or self-care (01) ==
LOC: ER 11:42
DX: S09.90XA Unspecified injury of head, initial encounter (principal); S01.111A Laceration without foreign body of right eyelid and periocular area, initial encounter; S00.81XA Abrasion of other part of head, initial encounter; S41.111A Laceration without foreign body of right upper arm, initial encounter; S81.011A Laceration without foreign body, right knee, initial encounter; R53.1 Weakness; R53.83 Other fatigue; W01.198A Fall on same level from slipping, tripping and stumbling with subsequent striking against other object, initial encounter; I25.10 Atherosclerotic heart disease of native coronary artery without angina pectoris; E78.00 Pure hypercholesterolemia, unspecified; I25.2 Old myocardial infarction; Z86.711 Personal history of pulmonary embolism; Z90.89 Acquired absence of other organs; Z90.49 Acquired absence of other specified parts of digestive tract; Z98.890 Other specified postprocedural states; Z79.82 Long term (current) use of aspirin; Z79.2 Long term (current) use of antibiotics; Z20.3 Contact with and (suspected) exposure to rabies; Z79.899 Other long term (current) drug therapy; Y93.89 Activity, other specified; Y92.89 Other specified places as the place of occurrence of the external cause; Y99.8 Other external cause status
CPT/HCPCS: 70450; 90715; 96374; 99284; J2270

== ENCOUNTER 2021-09-27 21:55 | Inpatient (IN) | payer MEDICARE ==
[~2021-09-27] VITALS: Ht 165.1 cm; Wt 79.5 kg
[2021-09-27 22:20] LABS: BASOPHILS % (AUTO) 0.6 % (0-1); EOSINOPHILS # (AUTO) 0.1 X10'3 (0-0.9); EOSINOPHILS % (AUTO) 2.2 % (0-6); HEMATOCRIT 39.1 % (35.0-45.0); HEMOGLOBIN 13.1 g/dl (12.0-16.0); LYMPHOCYTES # (AUTO) 2.7 X10'3 (1.1-4.8); LYMPHOCYTES % (AUTO) 42.9 % (21-51); MEAN CORPUSCULAR HEMOGLOBIN 31.2 PG (27.0-31.0); MEAN CORPUSCULAR HGB CONC 33.6 g/dL (33.0-36.5); MEAN CORPUSCULAR VOLUME 92.8 FL (78-98); MEAN PLATELET VOLUME 7.1 FL (7.4-10.4); MONOCYTES # (AUTO) 0.7 X10'3 (0-0.9); MONOCYTES % (AUTO) 11.1 % (2-12); NEUTROPHILS # (AUTO) 2.7 X10'3 (1.8-7.7); NEUTROPHILS % (AUTO) 43.2 % (42-75); PLATELET COUNT 278 X10'3 (140-440); RED BLOOD COUNT 4.21 X10'6 (4.20-5.60); RED CELL DISTRIBUTION WIDTH 13.9 % (11.5-14.5); WHITE BLOOD COUNT 6.3 X10'3 (4.5-11.0)
[2021-09-27 22:35] LABS: ALANINE AMINOTRANSFERASE 26 U/L (12-78); ALBUMIN 3.2 G/DL (3.4-5.0); ALBUMIN/GLOBULIN RATIO 0.9 (1.1-1.5); ALKALINE PHOSPHATASE 100 IU/L (46-116); ANION GAP 8 (8-16); ASPARTATE AMINO TRANSFERASE 26 U/L (10-37); BILIRUBIN,TOTAL 0.3 MG/DL (0.1-1.0); BLOOD UREA NITROGEN 23 MG/DL (7-18); BUN/CREATININE RATIO 20.2 (6.6-38.0); CALCIUM 9.5 MG/DL (8.5-10.1); CHLORIDE 104 MMOL/L (99-107); CREATININE 1.14 MG/DL (0.40-0.90); GLUCOSE 122 MG/DL (70-104); SODIUM 139 MMOL/L (135-145); TOTAL PROTEIN 6.6 G/DL (6.4-8.2); eGFR 46 ML/MIN
[2021-09-28] MEDS ORDERED: nitroGLYCERIN 1gm ointment UD TP ONE (01:25)
[2021-09-28] MEDS ORDERED: heparin 10,000 units/1 ML INJ IV PRN (01:30)
[2021-09-28] MEDS ORDERED: aspirin 81mg tab.chew PO ONE (01:30)
[2021-09-28] MEDS ORDERED: heparin 10,000 units/1 ML INJ IV ONE ×2 (01:30→02:10)
[2021-09-28] MEDS ORDERED: heparin 25,000 UNIT/250ml bag 250 ML IV SCH (01:30)
[2021-09-28 01:46] LABS: APTT 26 SECONDS (22-32)
[2021-09-28 01:52] LABS: BASOPHILS % (AUTO) 0.5 % (0-1); EOSINOPHILS # (AUTO) 0.1 X10'3 (0-0.9); EOSINOPHILS % (AUTO) 1.6 % (0-6); HEMATOCRIT 42.1 % (35.0-45.0); HEMOGLOBIN 14.1 g/dl (12.0-16.0); LYMPHOCYTES # (AUTO) 3.1 X10'3 (1.1-4.8); LYMPHOCYTES % (AUTO) 36.7 % (21-51); MEAN CORPUSCULAR HEMOGLOBIN 31.7 PG (27.0-31.0); MEAN CORPUSCULAR HGB CONC 33.6 g/dL (33.0-36.5); MEAN CORPUSCULAR VOLUME 94.3 FL (78-98); MEAN PLATELET VOLUME 7.1 FL (7.4-10.4); MONOCYTES # (AUTO) 0.9 X10'3 (0-0.9); MONOCYTES % (AUTO) 10.8 % (2-12); NEUTROPHILS # (AUTO) 4.2 X10'3 (1.8-7.7); NEUTROPHILS % (AUTO) 50.4 % (42-75); PLATELET COUNT 282 X10'3 (140-440); RED BLOOD COUNT 4.46 X10'6 (4.20-5.60); RED CELL DISTRIBUTION WIDTH 14.1 % (11.5-14.5); WHITE BLOOD COUNT 8.4 X10'3 (4.5-11.0)
[2021-09-28] MEDS ORDERED: bisacodyl 10mg suppository rectal RC PRN (02:20)
[2021-09-28] MEDS ORDERED: mag hydrox/Alum hydrox/simeth 30ml oral suspension PO PRN (02:20)
[2021-09-28] MEDS ORDERED: morphine 2 MG/ML inj. syringe IV PRN ×2 (02:20)
[2021-09-28] MEDS ORDERED: HYDROcodone/acetaminophen 10/325mg tab PO PRN (02:20)
[2021-09-28] MEDS ORDERED: acetaminophen 325mg tablet PO PRN ×2 (02:20)
[2021-09-28] MEDS ORDERED: magnesium hydroxide 30ml (MOM) UD suspension PO PRN (02:20)
[2021-09-28] MEDS ORDERED: normal saline 1000ml 1,000 ML IV SCH (02:20)
[2021-09-28] MEDS ORDERED: diphenhydrAMINE 25mg capsule PO PRN (02:20)
[2021-09-28] MEDS ORDERED: HYDROmorphone inj. 0.5 MG/0.5 ML DISP.SYRIN IV PRN (02:20)
[2021-09-28] MEDS ORDERED: HYDROcodone/acetaminophen 5mg/325mg tablet PO PRN (02:20)
[2021-09-28] MEDS ORDERED: ondansetron 4mg rapidly disintigrating tab PO PRN (02:20)
[2021-09-28] MEDS ORDERED: diphenhydrAMINE 50 mg/ml inj IV PRN (02:20)
[2021-09-28] MEDS ORDERED: ondansetron/PF 4mg/2ml inj IV PRN (02:20)
[2021-09-28 02:40] LABS: HEMOGLOBIN A1C 5.9 % (4.5-6.2)
[2021-09-28 02:43] LABS: PHOSPHORUS 3.8 MG/DL (2.3-4.5)
[2021-09-28 03:21] LABS: D-DIMER 0.69 MG/L FEU (0-0.50)
[2021-09-28] MEDS ORDERED: hydrALAZINE 20mg/ml inj. IV PRN (05:45)
[2021-09-28 08:00] VITALS: BP 163/64
[2021-09-28] MEDS: pantoprazole 40mg Tablet.DR PO SCH (08:21)
[2021-09-28] MEDS: docusate sod 100mg capsule PO SCH ×2 (08:22→21:31)
[2021-09-28] MEDS: furosemide 10 MG/1 ML 10ml inj IV SCH ×2 (08:22→21:31)
[2021-09-28 11:50] VITALS: BP 157/64
[2021-09-28] MEDS ORDERED: FOLI0.8C PO (14:51)
[2021-09-28] MEDS ORDERED: DULO60CA65 PO (14:51)
[2021-09-28] MEDS ORDERED: METO-467 PO (14:51)
[2021-09-28] MEDS ORDERED: ATOR80TA PO (14:51)
[2021-09-28] MEDS ORDERED: CLOP75TA15 PO (14:51)
[2021-09-28] MEDS ORDERED: LEVO125T8 PO (14:51)
[2021-09-28 15:38] VITALS: BP 138/55
[2021-09-28 18:00] VITALS: BP 152/69
--- NOTE | 2021-09-28 18:19 | NUR ---
Problems reprioritized. Patient report given, questions answered & plan of care reviewed with ZULLY ANDERSON.
[2021-09-28] MEDS ORDERED: temazepam 15mg capsule PO PRN (21:00)
[2021-09-28 22:00] VITALS: BP 121/54
[2021-09-29] VITALS (10 sets, daily range): BP systolic 87–202; BP diastolic 48–85
[2021-09-29 04:48] LABS: BASOPHILS % (AUTO) 0.6 % (0-1); EOSINOPHILS # (AUTO) 0.1 X10'3 (0-0.9); EOSINOPHILS % (AUTO) 1.6 % (0-6); HEMATOCRIT 40.5 % (35.0-45.0); HEMOGLOBIN 13.7 g/dl (12.0-16.0); LYMPHOCYTES # (AUTO) 2.4 X10'3 (1.1-4.8); LYMPHOCYTES % (AUTO) 36.5 % (21-51); MEAN CORPUSCULAR HEMOGLOBIN 31.3 PG (27.0-31.0); MEAN CORPUSCULAR HGB CONC 33.7 g/dL (33.0-36.5); MEAN CORPUSCULAR VOLUME 92.7 FL (78-98); MEAN PLATELET VOLUME 7.7 FL (7.4-10.4); MONOCYTES # (AUTO) 0.9 X10'3 (0-0.9); MONOCYTES % (AUTO) 13.1 % (2-12); NEUTROPHILS # (AUTO) 3.2 X10'3 (1.8-7.7); NEUTROPHILS % (AUTO) 48.2 % (42-75); PLATELET COUNT 280 X10'3 (140-440); RED BLOOD COUNT 4.37 X10'6 (4.20-5.60); RED CELL DISTRIBUTION WIDTH 13.8 % (11.5-14.5); WHITE BLOOD COUNT 6.6 X10'3 (4.5-11.0)
[2021-09-29 05:09] LABS: ALANINE AMINOTRANSFERASE 27 U/L (12-78); ALBUMIN 3.2 G/DL (3.4-5.0); ALBUMIN/GLOBULIN RATIO 0.9 (1.1-1.5); ALKALINE PHOSPHATASE 94 IU/L (46-116); ANION GAP 12 (8-16); ASPARTATE AMINO TRANSFERASE 28 U/L (10-37); BILIRUBIN,TOTAL 0.4 MG/DL (0.1-1.0); BLOOD UREA NITROGEN 19 MG/DL (7-18); BUN/CREATININE RATIO 19.4 (6.6-38.0); CALCIUM 9.5 MG/DL (8.5-10.1); CHLORIDE 103 MMOL/L (99-107); CHOL/HDL RATIO 4.5 (0.00-4.99); CHOLESTEROL 250 MG/DL (0-200); CREATININE 0.98 MG/DL (0.40-0.90); GLUCOSE 122 MG/DL (70-104); HDL CHOLESTEROL 55 MG/DL (35-60); LDL CHOLESTEROL 168 MG/DL (50-100); POTASSIUM 3.9 MMOL/L (3.5-5.1); SODIUM 143 MMOL/L (135-145); TOTAL CARBON DIOXIDE 28.1 MMOL/L (24-32); TOTAL PROTEIN 6.7 G/DL (6.4-8.2); TRIGLYCERIDES 112 MG/DL (20-135); eGFR 55 ML/MIN
[2021-09-29] MEDS: pantoprazole 40mg Tablet.DR PO SCH (07:06)
[2021-09-29] MEDS: docusate sod 100mg capsule PO SCH ×2 (07:06→20:00)
[2021-09-29] MEDS: furosemide 10 MG/1 ML 10ml inj IV SCH ×2 (07:06→20:56)
[2021-09-29] MEDS ORDERED: metoprolol tartrate 50mg tablet PO SCH (08:00)
[2021-09-29] MEDS: clopidogrel 75mg tablet PO SCH (09:34)
[2021-09-29] MEDS: atorvastatin 20mg tablet PO SCH (09:35)
[2021-09-29] MEDS: isosorbide mononitrate 30mg tab.SR.24H PO SCH (10:16)
[2021-09-29] MEDS ORDERED: metoprolol tartrate 25mg tablet PO ONE (12:15)
--- NOTE | 2021-09-29 15:54 | NUR ---
PAGER ID: [phone] MESSAGE: [id number] Jose Alberto Paredes: can I renew the tele order, given the events of today? thank you~! [phone]
--- NOTE | 2021-09-29 18:11 | NUR ---
Problems reprioritized. Patient report given, questions answered & plan of care reviewed with frandy alvarez.
[2021-09-29] MEDS: metoprolol tartrate 25mg tablet PO SCH (21:00)
[2021-09-30 02:00] VITALS: BP 115/58
[2021-09-30 06:05] LABS: BASOPHILS % (AUTO) 0.2 % (0-1); EOSINOPHILS # (AUTO) 0.1 X10'3 (0-0.9); EOSINOPHILS % (AUTO) 0.6 % (0-6); HEMATOCRIT 42.4 % (35.0-45.0); HEMOGLOBIN 14.4 g/dl (12.0-16.0); LYMPHOCYTES # (AUTO) 1.1 X10'3 (1.1-4.8); LYMPHOCYTES % (AUTO) 12.4 % (21-51); MEAN CORPUSCULAR HEMOGLOBIN 31.9 PG (27.0-31.0); MEAN CORPUSCULAR VOLUME 93.7 FL (78-98); MEAN PLATELET VOLUME 7.2 FL (7.4-10.4); MONOCYTES # (AUTO) 0.9 X10'3 (0-0.9); MONOCYTES % (AUTO) 10.4 % (2-12); NEUTROPHILS # (AUTO) 6.6 X10'3 (1.8-7.7); NEUTROPHILS % (AUTO) 76.4 % (42-75); PLATELET COUNT 240 X10'3 (140-440); RED BLOOD COUNT 4.52 X10'6 (4.20-5.60); RED CELL DISTRIBUTION WIDTH 13.9 % (11.5-14.5); WHITE BLOOD COUNT 8.6 X10'3 (4.5-11.0)
[2021-09-30 07:21] LABS: ALANINE AMINOTRANSFERASE 36 U/L (12-78); ALBUMIN 3.2 G/DL (3.4-5.0); ALBUMIN/GLOBULIN RATIO 0.9 (1.1-1.5); ALKALINE PHOSPHATASE 98 IU/L (46-116); ANION GAP 12 (8-16); ASPARTATE AMINO TRANSFERASE 42 U/L (10-37); BILIRUBIN,TOTAL 0.7 MG/DL (0.1-1.0); BLOOD UREA NITROGEN 24 MG/DL (7-18); BUN/CREATININE RATIO 23.1 (6.6-38.0); CALCIUM 9.4 MG/DL (8.5-10.1); CHLORIDE 100 MMOL/L (99-107); CREATININE 1.04 MG/DL (0.40-0.90); GLUCOSE 110 MG/DL (70-104); POTASSIUM 4.1 MMOL/L (3.5-5.1); SODIUM 137 MMOL/L (135-145); TOTAL CARBON DIOXIDE 24.8 MMOL/L (24-32); TOTAL PROTEIN 6.8 G/DL (6.4-8.2); eGFR 51 ML/MIN
[2021-09-30] MEDS: pantoprazole 40mg Tablet.DR PO SCH (07:30)
[2021-09-30] MEDS: furosemide 10 MG/1 ML 10ml inj IV SCH (08:00)
[2021-09-30] MEDS: isosorbide mononitrate 30mg tab.SR.24H PO SCH (08:44)
[2021-09-30] MEDS: atorvastatin 20mg tablet PO SCH (08:47)
[2021-09-30] MEDS: docusate sod 100mg capsule PO SCH (08:47)
[2021-09-30] MEDS: clopidogrel 75mg tablet PO SCH (08:47)
[2021-09-30 08:51] VITALS: BP_SYST 128
[2021-09-30] MEDS: metoprolol tartrate 25mg tablet PO SCH (08:51)
[2021-09-30] MEDS ORDERED: SYN0.088T PO (12:12)
[2021-09-30] MEDS ORDERED: LOP25T PO (12:12)
[2021-09-30] MEDS ORDERED: ISOS30TA84 PO (12:12)
[2021-10-01] MEDS ORDERED: levoTHYROXINE 88mcg tablet PO SCH (07:00)
[2021-10-01] MEDS ORDERED: levoTHYROXINE 125mcg tablet PO SCH (08:00)
[2021-10-01] MEDS ORDERED: folic acid 0.4mg tablet PO SCH (08:00)
== END 2021-09-30 14:43 | disposition home or self-care (01) | DRG 280 ==
LOC: ER 21:56 → ED HOLD 09-28 02:23 → PCU 3S 09-28 07:45
PROVIDERS: ADMIT Family Medicine; ATTEND Internal Medicine
DX: I13.0 Hypertensive heart and chronic kidney disease with heart failure and stage 1 through stage 4 chronic kidney disease, or unspecified chronic kidney disease (principal); I21.A1 Myocardial infarction type 2; I50.33 Acute on chronic diastolic (congestive) heart failure; N17.9 Acute kidney failure, unspecified; I16.1 Hypertensive emergency; I25.110 Atherosclerotic heart disease of native coronary artery with unstable angina pectoris; F32.A Depression, unspecified; N18.9 Chronic kidney disease, unspecified; R00.0 Tachycardia, unspecified; E03.9 Hypothyroidism, unspecified; E78.00 Pure hypercholesterolemia, unspecified; E78.5 Hyperlipidemia, unspecified; I44.4 Left anterior fascicular block; I73.9 Peripheral vascular disease, unspecified; K44.9 Diaphragmatic hernia without obstruction or gangrene; Z79.02 Long term (current) use of antithrombotics/antiplatelets; Z79.899 Other long term (current) drug therapy; Z86.711 Personal history of pulmonary embolism; I25.2 Old myocardial infarction; Z90.710 Acquired absence of both cervix and uterus; Z95.5 Presence of coronary angioplasty implant and graft; Z90.49 Acquired absence of other specified parts of digestive tract; Z79.82 Long term (current) use of aspirin
CPT/HCPCS: 36415; 71045; 80053; 80061; 83036; 83735; 83880; 84100; 84439; 84443; 84484; 85025; 85379; 85610; 85730; 87081; 92508; 92616; 93306; 96374; 99285; A6258; G0378; J1644; J1940; J7030

== ENCOUNTER 2022-08-16 14:27 | Emergency (ER) | payer MEDICARE ==
[~2022-08-16] VITALS: Ht 165.1 cm; Wt 90.9 kg
[~2022-08-16 14:27] MED LIST changes: -ASPI-611 PO; -ATOR40TA PO; +ATOR80TA PO; -CHOL10002 PO; +CLOP75TA15 PO; -CLOP75TA34 PO; +FOLI0.8C PO; +ISOS30TA84 PO; +LOP25T PO; -METO25TA6 PO; -NALT50TA PO; -NITR0.4T48 SL; -PENT400T17 PO; -SYN0.1T PO; -UBID1CAP54 PO; -[UNRECOGNIZED DRUG - CODE] PO; -microzide
[2022-08-16 14:46] LABS: BASOPHILS % (AUTO) 0.4 % (0-1); EOSINOPHILS # (AUTO) 0.1 X10'3 (0-0.9); EOSINOPHILS % (AUTO) 1.3 % (0-6); HEMATOCRIT 39.3 % (35.0-45.0); HEMOGLOBIN 12.9 g/dl (12.0-16.0); LYMPHOCYTES # (AUTO) 1.8 X10'3 (1.1-4.8); LYMPHOCYTES % (AUTO) 28.4 % (21-51); MEAN CORPUSCULAR HEMOGLOBIN 31.7 PG (27.0-31.0); MEAN CORPUSCULAR HGB CONC 32.9 g/dL (33.0-36.5); MEAN CORPUSCULAR VOLUME 96.3 FL (78-98); MEAN PLATELET VOLUME 7.3 FL (7.4-10.4); MONOCYTES # (AUTO) 0.6 X10'3 (0-0.9); NEUTROPHILS # (AUTO) 3.8 X10'3 (1.8-7.7); NEUTROPHILS % (AUTO) 59.9 % (42-75); PLATELET COUNT 271 X10'3 (140-440); RED BLOOD COUNT 4.08 X10'6 (4.20-5.60); RED CELL DISTRIBUTION WIDTH 13.6 % (11.5-14.5); WHITE BLOOD COUNT 6.3 X10'3 (4.5-11.0)
[2022-08-16 15:11] LABS: ALANINE AMINOTRANSFERASE 27 U/L (12-78); ALBUMIN 3.6 G/DL (3.4-5.0); ALBUMIN/GLOBULIN RATIO 1.1 (1.1-1.5); ALKALINE PHOSPHATASE 88 IU/L (46-116); ANION GAP 9 (8-16); ASPARTATE AMINO TRANSFERASE 25 U/L (10-37); BILIRUBIN,TOTAL 0.5 MG/DL (0.1-1.0); BLOOD UREA NITROGEN 23 MG/DL (7-18); BUN/CREATININE RATIO 17.7 (10.0-20.0); CALCIUM 9.5 MG/DL (8.5-10.1); CHLORIDE 102 MMOL/L (99-107); GLUCOSE 110 MG/DL (70-104); POTASSIUM 4.2 MMOL/L (3.5-5.1); SODIUM 139 MMOL/L (135-145); eGFR 39 ML/MIN
[2022-08-16] MEDS ORDERED: aspirin 81mg tab.chew PO ONE (17:45)
[2022-08-16] MEDS ORDERED: pantoprazole 40 MG vial IV ONE (17:45)
[2022-08-16] MEDS ORDERED: pantoprazole 40MG/NS 100ML BAG 100 ML IV ONE (18:00)
[2022-08-16] MEDS ORDERED: PANT-47 PO (18:48)
[2022-08-16 20:33] VITALS: BP 173/75
== END 2022-08-16 20:34 | disposition home or self-care (01) ==
LOC: ER 14:28
DX: R07.9 Chest pain, unspecified (principal); R13.10 Dysphagia, unspecified; R53.83 Other fatigue; I11.9 Hypertensive heart disease without heart failure; E78.00 Pure hypercholesterolemia, unspecified; I10 Essential (primary) hypertension; Z79.899 Other long term (current) drug therapy; Z79.1 Long term (current) use of non-steroidal anti-inflammatories (NSAID)
CPT/HCPCS: 36415; 71045; 80053; 83735; 83880; 84443; 84484; 85025; 93005; 99285